=== PATIENT | female | born 1950 | race Caucasian/White ===

== ENCOUNTER 2023-12-29 09:59 | Day surgery (SDC) | payer MEDICARE ==
[~2023-12-29] VITALS: Ht 157.5 cm; Wt 93.6 kg
[~2023-12-29 09:59] MED LIST: ASCO500C3 PO; CIDA500T2 PO; D3 H10002 PO; LR 1,000 ML IV SCH; MAGN400T2 PO; OCUV1CAP4 PO; OMEG10002 PO; OMEP-173 PO; ROSU40TA81 PO; ZOLO100T PO; fentaNYL 100 MCG/2 ML INJECTION As Ordered ONE
[2023-12-29] MEDS: FLURBIPROFEN 0.03% OPHTH SOLN 2.5 ML OS SCH (12:07)
[2023-12-29] MEDS: TETRACAINE 0.5% OPHTH SOLN 4ML OS SCH (12:07)
[2023-12-29] MEDS: ATROPINE SULFATE 1% OPHTH SOLN 2ML BTL OS SCH (12:07)
[2023-12-29] MEDS: PHENYLEPHRINE 2.5% OPHTH SOL 2ML OS SCH (12:07)
[2023-12-29] MEDS: LIDOCAINE 1% SDV 5ML VIAL As Ordered ONE (13:12)
[2023-12-29] MEDS: CEFUROXIME 1MG/0.1ML INTRACAMERAL INJ As Ordered ONE (13:14)
[2023-12-29] MEDS ORDERED: MIDAZOLAM INJ 2MG/2ML VIAL As Ordered ONE (13:14)
[2023-12-29 13:29] VITALS: BP 167/78; TEMP 97; O2SAT 95
== END 2023-12-29 13:50 | disposition home or self-care (01) ==
LOC: M SDC 09:59
PROVIDERS: ATTEND Ophthalmology
DX: H25.12 Age-related nuclear cataract, left eye (principal); K21.9 Gastro-esophageal reflux disease without esophagitis; K44.9 Diaphragmatic hernia without obstruction or gangrene; F41.9 Anxiety disorder, unspecified; F32.A Depression, unspecified; Z79.899 Other long term (current) drug therapy
CPT/HCPCS: 66984; J0697; J2250; J3010; V2632

== ENCOUNTER 2024-01-26 08:45 | Day surgery (SDC) | payer MEDICARE ==
[~2024-01-26] VITALS: Ht 160 cm; Wt 94.3 kg
[2024-01-26] MEDS: FLURBIPROFEN 0.03% OPHTH SOLN 2.5 ML OD SCH (10:12)
[2024-01-26] MEDS: CYCLOPENTOLATE 1% OPHTH SOLN 2ML BTL OD SCH (10:12)
[2024-01-26] MEDS: TETRACAINE 0.5% OPHTH SOLN 4ML OD SCH (10:12)
[2024-01-26] MEDS: PHENYLEPHRINE 2.5% OPHTH SOL 2ML OD SCH (10:12)
[2024-01-26] MEDS: CEFUROXIME 1MG/0.1ML INTRACAMERAL INJ As Ordered ONE (11:24)
[2024-01-26] MEDS: LIDOCAINE 1% SDV 5ML VIAL As Ordered ONE (11:24)
[2024-01-26 11:45] VITALS: BP 135/80; TEMP 97.5; O2SAT 96
[2024-01-26] MEDS: ACETAMINOPHEN 325 MG TAB PO STA (12:00)
== END 2024-01-26 12:32 | disposition home or self-care (01) ==
LOC: M SDC 08:45
PROVIDERS: ATTEND Ophthalmology
DX: H25.11 Age-related nuclear cataract, right eye (principal); H25.011 Cortical age-related cataract, right eye; K44.9 Diaphragmatic hernia without obstruction or gangrene; K21.9 Gastro-esophageal reflux disease without esophagitis; F41.9 Anxiety disorder, unspecified; F32.A Depression, unspecified; Z79.899 Other long term (current) drug therapy
CPT/HCPCS: 66984; J0697; J3010; V2632